=== PATIENT | female | born 1980 | race Hispanic/Latino ===

== ENCOUNTER → 2019-04-03 10:57 | Outpatient (CLI) | payer OTHER, SELFPAY ==
[2019-04-03 12:36] LABS: HCG Quantitative /Beta subunit < 2.39 mIU/mL
== END ==
PROVIDERS: Visit Provider Obstetrics & Gynecology
DX: N91.2 Amenorrhea, unspecified (principal)
CPT/HCPCS: 36415; 84702

== ENCOUNTER 2019-04-18 14:15 | Outpatient (RCR) | payer OTHER, SELFPAY ==
--- NOTE | 2019-03-15 16:14 | PT.OIE ---
Current Diagnoses Carpal tunnel syndrome, bilateral upper limbs (03/15/19) Pain in right wrist (03/15/19) Pain in left wrist (03/15/19) Past Medical History (Last Updated 03/15/19 @ 16:04 by Luz Elena Rock, PT) Asthma (Acute) Dislocation of left shoulder joint (Acute) Infertility, female (Acute) Past Surgical History (Last Updated 03/15/19 @ 16:04 by Luz Elena Rock, PT) delivery delivered (Acute ~10/16/18) H/O breast augmentation (Acute) H/O cornea transplant (Acute) Visit Care Team Role Provider Type Eri Aquino MD Attending Provider Physician Specialty: CHIEF PROGRAM OFFICER Address: [address] [place] [address], [facility] Email: [email or web address] Physical Therapy Initial Evaluation PT-OP-A Visit Information Start: 03/14/19 16:17 Freq: Status: Active Protocol: Document 03/15/19 14:23 LRN (Rec: 03/15/19 15:48 LRN [id number]) Out-Patient Physical Therapy Visit Information Visit Information Visit Type Initial Evaluation Visit Start Time 14:23 Visit Stop Time 15:05 Total Visit Minutes 42 Visit Number 1 Number of WELT STITCH CLEANER Visits 0 Evaluation Information Evaluation Date 03/15/19 Precautions Precautions almost 5 month old son. Hx of dislocated L shoulder per pt report. PT-OP-B Current Condition Start: 03/14/19 16:17 Freq: Status: Active Protocol: Document 03/15/19 14:23 LRN (Rec: 03/15/19 15:48 LRN [id number]) Current Condition History of Current Condition Onset Date Apr 2018. Stiffness in wrists started 10/16/18. Current Complaints Wrists feel super tight. Sometimes pain with movement radiates up forearm. History of Current Condition Carpal tunnel during 2nd trimester of . Child born 10/16/2018. Numbness went away after , now feels tightness in wrists and when weightbearing in the wrists feels stiff. 3 miscarriages . Prior Treatments and Tests Self treatment of stretching, that helps. Pt in [place] for ankle injury for past 3 years. Treatment Goals Patient/Caregiver Goals Pt goal with therapy is to clean house and exercise without pain, back to baseline . Prior Functional Status Baseline Function- ADL's Independent Baseline Function- Mobility Independent Baseline Function- Recreation/Hobbies No limitations. Current Functional Impairments (Reported) Functional Limitations- ADL's Feels wrist as son gets heavier. Functional Limitations- Recreation/ Exercise. Some movements like Hobbies overhead lift with dumbbell and squatting. Trouble holding weight.I Personal Factors Other Personal Factors That May Effect [place] on 10/16/18. Therapy/Recovery Baby currently . Spouse attending physical therapy for head injury. PT-OP-C Subjective Start: 03/14/19 16:17 Freq: Status: Active Protocol: Document 03/15/19 14:23 LRN (Rec: 03/15/19 15:48 LRN [id number]) Patient Questionnaires Quick Dash- Upper Extremity Quick Dash UE Score 15.9 Quick Dash UE Impairment 1 to 19% Impaired (Score 1-19) OP-PT Pain Assessment Pain Assessment Grid Paper Pain Assessment Grid Completed No Location L wrist Pain Location Details Anterior and posterior to Radial tuberosity and up forearm, radial side Intensity 4 Scale Used Numeric (1 - 10) Description Tightness Frequency Constant Radiating Location Up to mid forearm R wrist Pain Location Details Anterior and posterior to Radial tuberosity and up forearm, radial side Intensity 4 Scale Used Numeric (1 - 10) Description Tightness Frequency Constant Radiating Location Up to mid forearm Other Pain Aggravating Factors Nighttime PT-OP-H Neuro Start: 03/14/19 16:17 Freq: Status: Active Protocol: Document 03/15/19 14:23 LRN (Rec: 03/15/19 15:48 LRN [id number]) Sensation Evaluation Gross Sensation Gross Sensation WNL PT-OP-J Posture/Palpation/Skin Start: 03/14/19 16:17 Freq: Status: Active Protocol: Document 03/15/19 14:23 LRN (Rec: 03/15/19 15:59 LRN [id number]) Posture Evaluation Comments Posture Comments In Standing: Pt presents with endomorphic body type. She holds her arms in IR. Her L shoulder is low and slightly forward. She appears to have mild atrophy of the L forearm compared to the right (pt is right hand dominant). Palpation Assessment Location Bilateral forearms Palpation Location Anterior and posterior to the radial bone and proximal mid forearm Palpation Findings Tenderness PT-OP-K Range of Motion Start: 03/14/19 16:17 Freq: Status: Active Protocol: Document 03/15/19 14:23 LRN (Rec: 03/15/19 15:59 LRN [id number]) Elbow/Forearm Range of Motion Elbow/Forearm Right Active ROM Testing Position Sitting Elbow Flexion (degrees) 135 Elbow Hyperextension 7 Left Active ROM Testing Position Sitting Elbow Flexion (degrees) 130 Elbow Hyperextension 5 Wrist Goniometric Range of Motion Wrist Right Flexion Active (degrees) 60 Extension Active (degrees) 60 Left Flexion Active (degrees) 70 Extension Active (degrees) 42 PT-OP-L Special Tests Start: 03/14/19 16:17 Freq: Status: Active Protocol: Document 03/15/19 14:23 LRN (Rec: 03/15/19 15:48 LRN [id number]) Special Tests Wrist/Hand Special Tests Angela's Test Results + Bilateral PT-OP-M Strength Start: 03/14/19 16:17 Freq: Status: Active Protocol: Document 03/15/19 14:23 LRN (Rec: 03/15/19 15:59 LRN [id number]) Elbow/Forearm Strength Elbow and Forearm Manual Muscle Testing Right Flexion (C6) 5 Normal Extension (C7) 5 Normal Pronation 5 Normal Supination 5 Normal Left Flexion (C6) 5 Normal Extension (C7) 5 Normal Pronation 4+ Good+ Supination 4+ Good+ Comments Stiffness at anterior wrist is felt with elbow flexion MMT. Wrist Strength Wrist Manual Muscle Testing Right Flexion (C7) 4+ Good+ Extension (C6) 5 Normal Left Flexion (C7) 4+ Good+ Extension (C6) 5 Normal Finger/Thumb Strength Finger Manual Muscle Testing Right Thumb Flexion (fingers C8) 5 Normal Extension (thumb C8) 4+ Good+ Abduction (fingers T1) 5 Normal Left Thumb Flexion (fingers C8) 5 Normal Extension (thumb C8) 4+ Good+ Abduction (fingers T1) 5 Normal Hand Cleaner Touch Up Worker/Pinch Strength Hand Dominance Hand Dominance Right Hand Strength Right Comments 24 kg Left Comments 22 kg PT-OP-Q Treatments Start: 03/14/19 16:17 Freq: Status: Active Protocol: Document 03/15/19 14:23 LRN (Rec: 03/15/19 15:48 LRN [id number]) Self-Care/Home Management Treatment Education Patient Education Home Exercise Program,Pain Management Activities Self-Care/Home Management Activities I/S pt in self care use of modalities for pain and for after exercise. I/S pt in self prison stretch to the bilateral wrists (flex, ext, radial deviation). PT-OP-T Assessment and Plan Start: 03/14/19 16:17 Freq: Status: Active Protocol: Document 03/15/19 14:23 LRN (Rec: 03/15/19 15:48 LRN [id number]) Physical Therapy Assessment Rehab Potential Rehabilitation Potential Good Evaluation Complexity Number of Personal Factors/Comorbidities 1-2 Number of Body Systems Impaired 4 or More Clinical Presentation at Evaluation Evolving Impairments Impairments Activity Tolerance,Edema, Functional Mobility,Pain,ROM, Soft Tissue Mobility,Strength Goals Three Impairment Decreased wrist strength and L forearm strength due to pain and stiffness. Fpc Goal (LTG) Pt will demonstrate normal wrist and L forearm strength to be able to return to exercise for her health and well being. LTG Duration 05/14/19 Two Impairment Stiffness of bilateral wrist with ROM Short Term Goal (STG) Improve painfree/stiff free wrist AROM STG Duration 04/12/19 Fpc Goal (LTG) Pt will be able to weight bear into her hands without pain or stiffness to perform functional activities at home. LTG Duration 05/14/19 One Impairment Lacks appropriate HEP Baller Tender Goal (LTG) Pt will be independent in a self care HEP. LTG Duration 05/14/19 Assessment Summary Assessment Pt presents with mild bilateral carpel tunnel symptoms and mild symptoms of De Quervain's disease with tightness and pain felt along the tendon of the extensor pollicis brevis tendon and abductor pollicis longus tendon. She doesn't appear to have significant weakness in the hands, but has some weakness in the left comopared to the right. The pt will benefit from skilled physical therapy to normalize wrist mobility and strength and improve painfree functional ability. Physical Therapy Plan Frequency and Duration Frequency of Treatment 2x/Week Duration of Treatment 8 weeks Plan of Care Start Date 03/15/19 Plan of Care End Date 05/14/19 Therapeutic Interventions Therapeutic Interventions Home Exercise Program,Joint Mobilizations,Manual Therapy, Self-Care/Home Management,Soft Tissue Mobilization,Taping, Therapeutic Exercises Modalities Cold Pack/Ice Massage, Ultrasound Next Visit Focus/Plan Next Note Type Treatment Note Next Visit Plan Check wrist ROM/strength for UD/RD. Start STM for bilateral forearm (wrist and thumb ext's and thumb add), US to L carpal tunnel region f/b stretch of wrist and stretch to extensor pollicis brevis and adductor pollicis longus tendons, K-tape for space correction for carpal tunnel.
--- NOTE | 2019-03-22 16:00 | PT.OTN ---
Current Diagnoses Carpal tunnel syndrome, bilateral upper limbs (03/22/19) Pain in right wrist (03/22/19) Pain in left wrist (03/22/19) Physical Therapy Treatment Note PT-OP-A Visit Information Start: 03/14/19 16:17 Freq: Status: Active Protocol: Document 03/22/19 08:14 LRN (Rec: 03/22/19 09:02 LRN [id number]) Out-Patient Physical Therapy Visit Information Visit Information Visit Type Treatment Note Visit Start Time 08:16 Visit Stop Time 09:07 Total Visit Minutes 51 Visit Number 2 Number of GREEN HIDE INSPECTOR Visits 0 Evaluation Information Evaluation Date 03/15/19 Precautions Precautions almost 5 month old son. Hx of dislocated L shoulder per pt report. PT-OP-B Current Condition Start: 03/14/19 16:17 Freq: Status: Active Protocol: Document 03/15/19 14:23 LRN (Rec: 03/15/19 15:48 LRN [id number]) Current Condition History of Current Condition Onset Date Apr 2018. Stiffness in wrists started 10/16/18. Current Complaints Wrists feel super tight. Sometimes pain with movement radiates up forearm. History of Current Condition Carpal tunnel during 2nd trimester of . Child born 10/16/2018. Numbness went away after , now feels tightness in wrists and when weightbearing in the wrists feels stiff. 3 miscarriages . Prior Treatments and Tests Self treatment of stretching, that helps. Pt in [place] for ankle injury for past 3 years. Treatment Goals Patient/Caregiver Goals Pt goal with therapy is to clean house and exercise without pain, back to baseline . Prior Functional Status Baseline Function- ADL's Independent Baseline Function- Mobility Independent Baseline Function- Recreation/Hobbies No limitations. Current Functional Impairments (Reported) Functional Limitations- ADL's Feels wrist as son gets heavier. Functional Limitations- Recreation/ Exercise. Some movements like Hobbies overhead lift with dumbbell and squatting. Trouble holding weight.I Personal Factors Other Personal Factors That May Effect on 10/16/18. Therapy/Recovery Baby currently . Spouse attending physical therapy for head injury. PT-OP-C Subjective Start: 03/14/19 16:17 Freq: Status: Active Protocol: Document 03/22/19 08:14 LRN (Rec: 03/22/19 09:02 LRN [id number]) OP-PT Subjective Patient Comments Patient Comments States she has pain all in L arm to shoulder, pain at wrist is the same. PT-OP-H Neuro Start: 03/14/19 16:17 Freq: Status: Active Protocol: Document 03/15/19 14:23 LRN (Rec: 03/15/19 15:48 LRN [id number]) Sensation Evaluation Gross Sensation Gross Sensation WNL PT-OP-J Posture/Palpation/Skin Start: 03/14/19 16:17 Freq: Status: Active Protocol: Document 03/22/19 08:14 LRN (Rec: 03/22/19 09:02 LRN [id number]) Palpation Assessment Location Neck Palpation Location Neck SP Palpation Findings Tenderness Palpation Details C6, C8, T1, T2 SP C7 R TP PT-OP-K Range of Motion Start: 03/14/19 16:17 Freq: Status: Active Protocol: Document 03/22/19 08:14 LRN (Rec: 03/22/19 09:02 LRN [id number]) Wrist Goniometric Range of Motion Wrist Right Ulnar Deviation Active (degrees) 22 Radial Deviation Active (degrees) 27 Left Ulnar Deviation Active (degrees) 30 Radial Deviation Active (degrees) 27 ROM Limitations Wrist Limitations of Range of Motion Swelling Comments R UD causes pain at radial side of wrist with AROM, possible radial tendon pain. PT-OP-L Special Tests Start: 03/14/19 16:17 Freq: Status: Active Protocol: Document 03/22/19 08:14 LRN (Rec: 03/22/19 09:02 LRN [id number]) Special Tests Cervical Spine Special Tests Vertebral Artery Test Results negative bilaterally Comments less C/S rotatioin left. PT-OP-M Strength Start: 03/14/19 16:17 Freq: Status: Active Protocol: Document 03/15/19 14:23 LRN (Rec: 03/15/19 15:59 LRN [id number]) Elbow/Forearm Strength Elbow and Forearm Manual Muscle Testing Right Flexion (C6) 5 Normal Extension (C7) 5 Normal Pronation 5 Normal Supination 5 Normal Left Flexion (C6) 5 Normal Extension (C7) 5 Normal Pronation 4+ Good+ Supination 4+ Good+ Comments Stiffness at anterior wrist is felt with elbow flexion MMT. Wrist Strength Wrist Manual Muscle Testing Right Flexion (C7) 4+ Good+ Extension (C6) 5 Normal Left Flexion (C7) 4+ Good+ Extension (C6) 5 Normal Finger/Thumb Strength Finger Manual Muscle Testing Right Thumb Flexion (fingers C8) 5 Normal Extension (thumb C8) 4+ Good+ Abduction (fingers T1) 5 Normal Left Thumb Flexion (fingers C8) 5 Normal Extension (thumb C8) 4+ Good+ Abduction (fingers T1) 5 Normal Hand Uncrater/Pinch Strength Hand Dominance Hand Dominance Right Hand Strength Right Comments 24 kg Left Comments 22 kg PT-OP-Q Treatments Start: 03/14/19 16:17 Freq: Status: Active Protocol: Document 03/22/19 08:14 LRN (Rec: 03/22/19 09:02 LRN [id number]) Therapeutic Exercises Supine Exercises Angela stretch Supine Exercise Name Angela stretch Side right Comments ROM taken for UD/RD bilaterally UT Supine Exercise Name UT stretch Side right Comments Overhead lights out due to pt sensitivity Scalene Supine Exercise Name Scalene stretch Side bilateral Comments Overhead lights out due to pt sensitivity Manual Therapy Treatment Soft Tissue Mobilization R forearm Body Location R forearm Mobilization Type Strumming,Sustained Pressure, Trigger Point Release Comments Overhead lights out due to pt sensitivity Neck Body Location R UT/MT, Posterior Scalene, Lev Scap Mobilization Type Myofascial Release,Sustained Pressure,Trigger Point Release Intensity/Depth Superficial to moderate Body Position Supine Comments Overhead lights out due to pt sensitivity Manual Traction Cervical Details Cervical traction Body Position Supine Reps/Duration 3' Comments Decrease in L wrist and R shoulder pain Nerve Glides Radial Nerve Radial Details Supine: R arm straight at 90 deg's AB, wrist pumping Reps/Duration 1 set of 10 wrist pumps Comments Overhead lights out due to pt sensitivity Self-Care/Home Management Treatment Education Patient Education Home Exercise Program Activities Self-Care/Home Management Activities Issued and reviewed HEP: Ulnar nerve stretch and Cervical stretch (Scalene in supine). PT-OP-R Modalities Start: 03/14/19 16:17 Freq: Status: Active Protocol: Document 03/22/19 08:14 LRN (Rec: 03/22/19 09:02 LRN [id number]) Hot Pack/Cold Pack Treatment Hot Pack Location R neck/shoulder Patient Position Supine Treatment Duration (minutes) 10 Comments Overhead lights out due to pt sensitivity PT-OP-T Assessment and Plan Start: 03/14/19 16:17 Freq: Status: Active Protocol: Document 03/22/19 08:14 LRN (Rec: 03/22/19 09:02 LRN [id number]) Physical Therapy Assessment Goals Three Impairment Decreased wrist strength and L forearm strength due to pain and stiffness. Custodial Goal (LTG) Pt will demonstrate normal wrist and L forearm strength to be able to return to exercise for her health and well being. LTG Duration 05/14/19 Two Impairment Stiffness of bilateral wrist with ROM Short Term Goal (STG) Improve painfree/stiff free wrist AROM STG Duration 04/12/19 Strategic Planning Specialist Goal (LTG) Pt will be able to weight bear into her hands without pain or stiffness to perform functional activities at home. LTG Duration 05/14/19 One Impairment Lacks appropriate HEP Strategic Planning Specialist Goal (LTG) Pt will be independent in a self care HEP. LTG Duration 05/14/19 Assessment Summary Assessment Manual traction decreased shoulder pain mildly. STM was helpful to decrease wrist pain. Tenderness at ext pollicis brevis and ABD pollicis longus tendon. Active R. UD is decreased in mobility. Physical Therapy Plan Frequency and Duration Frequency of Treatment 2x/Week Duration of Treatment 8 weeks Plan of Care Start Date 03/15/19 Plan of Care End Date 05/14/19 Next Visit Focus/Plan Next Note Type Treatment Note Next Visit Plan Review previously issued HEP; start STM for bilateral forearm (wrist and thumb ext's and AD's), US to L carpal tunnel region f/b stretch of wrist and stretch to extensor pollicis brevis and adductor pollicis longus tendons, K- tape for space correction for carpal tunnel.
--- NOTE | 2019-03-26 16:54 | PT.OTN ---
Current Diagnoses Carpal tunnel syndrome, bilateral upper limbs (03/26/19) Pain in right wrist (03/26/19) Pain in left wrist (03/26/19) Physical Therapy Treatment Note PT-OP-A Visit Information Start: 03/14/19 16:17 Freq: Status: Active Protocol: Document 03/26/19 08:18 LRN (Rec: 03/26/19 09:02 LRN [id number]) Out-Patient Physical Therapy Visit Information Visit Information Visit Type Treatment Note Visit Start Time 08:20 Visit Stop Time 09:00 Total Visit Minutes 40 Visit Number 3 Evaluation Information Evaluation Date 03/15/19 Precautions Precautions almost 5 month old son. Hx of dislocated L shoulder per pt report. PT-OP-B Current Condition Start: 03/14/19 16:17 Freq: Status: Active Protocol: Document 03/15/19 14:23 LRN (Rec: 03/15/19 15:48 LRN [id number]) Current Condition History of Current Condition Onset Date Apr 2018. Stiffness in wrists started 10/16/18. Current Complaints Wrists feel super tight. Sometimes pain with movement radiates up forearm. History of Current Condition Carpal tunnel during 2nd trimester of . Child born 10/16/2018. Numbness went away after , now feels tightness in wrists and when weightbearing in the wrists feels stiff. 3 miscarriages . Prior Treatments and Tests Self treatment of stretching, that helps. Pt in [place] for ankle injury for past 3 years. Treatment Goals Patient/Caregiver Goals Pt goal with therapy is to clean house and exercise without pain, back to baseline . Prior Functional Status Baseline Function- ADL's Independent Baseline Function- Mobility Independent Baseline Function- Recreation/Hobbies No limitations. Current Functional Impairments (Reported) Functional Limitations- ADL's Feels wrist as son gets heavier. Functional Limitations- Recreation/ Exercise. Some movements like Hobbies overhead lift with dumbbell and squatting. Trouble holding weight.I Personal Factors Other Personal Factors That May Effect on 10/16/18. Therapy/Recovery Baby currently . Spouse attending physical therapy for head injury. PT-OP-C Subjective Start: 03/14/19 16:17 Freq: Status: Active Protocol: Document 03/26/19 08:18 LRN (Rec: 03/26/19 09:02 LRN [id number]) OP-PT Subjective Patient Comments Patient Comments No change. R Wrist hurt more today, both wrists hurt. R wrist pain rated 6-7/10 before therapy, 3-4/10 after therapy . PT-OP-H Neuro Start: 03/14/19 16:17 Freq: Status: Active Protocol: Document 03/15/19 14:23 LRN (Rec: 03/15/19 15:48 LRN [id number]) Sensation Evaluation Gross Sensation Gross Sensation WNL PT-OP-J Posture/Palpation/Skin Start: 03/14/19 16:17 Freq: Status: Active Protocol: Document 03/22/19 08:14 LRN (Rec: 03/22/19 09:02 LRN [id number]) Palpation Assessment Location Neck Palpation Location Neck SP Palpation Findings Tenderness Palpation Details C6, C8, T1, T2 SP C7 R TP PT-OP-K Range of Motion Start: 03/14/19 16:17 Freq: Status: Active Protocol: Document 03/22/19 08:14 LRN (Rec: 03/22/19 09:02 LRN [id number]) Wrist Goniometric Range of Motion Wrist Right Ulnar Deviation Active (degrees) 22 Radial Deviation Active (degrees) 27 Left Ulnar Deviation Active (degrees) 30 Radial Deviation Active (degrees) 27 ROM Limitations Wrist Limitations of Range of Motion Swelling Comments R UD causes pain at radial side of wrist with AROM, possible radial tendon pain. PT-OP-L Special Tests Start: 03/14/19 16:17 Freq: Status: Active Protocol: Document 03/22/19 08:14 LRN (Rec: 03/22/19 09:02 LRN [id number]) Special Tests Cervical Spine Special Tests Vertebral Artery Test Results negative bilaterally Comments less C/S rotatioin left. PT-OP-M Strength Start: 03/14/19 16:17 Freq: Status: Active Protocol: Document 03/15/19 14:23 LRN (Rec: 03/15/19 15:59 LRN [id number]) Elbow/Forearm Strength Elbow and Forearm Manual Muscle Testing Right Flexion (C6) 5 Normal Extension (C7) 5 Normal Pronation 5 Normal Supination 5 Normal Left Flexion (C6) 5 Normal Extension (C7) 5 Normal Pronation 4+ Good+ Supination 4+ Good+ Comments Stiffness at anterior wrist is felt with elbow flexion MMT. Wrist Strength Wrist Manual Muscle Testing Right Flexion (C7) 4+ Good+ Extension (C6) 5 Normal Left Flexion (C7) 4+ Good+ Extension (C6) 5 Normal Finger/Thumb Strength Finger Manual Muscle Testing Right Thumb Flexion (fingers C8) 5 Normal Extension (thumb C8) 4+ Good+ Abduction (fingers T1) 5 Normal Left Thumb Flexion (fingers C8) 5 Normal Extension (thumb C8) 4+ Good+ Abduction (fingers T1) 5 Normal Hand Corporate Quality Assurance Manager/Pinch Strength Hand Dominance Hand Dominance Right Hand Strength Right Comments 24 kg Left Comments 22 kg PT-OP-Q Treatments Start: 03/14/19 16:17 Freq: Status: Active Protocol: Document 03/26/19 08:18 LRN (Rec: 03/26/19 09:02 LRN [id number]) Therapeutic Exercises Supine Exercises Angela stretch Supine Exercise Name Angela stretch Side right Comments ROM taken for UD/RD bilaterally UT Supine Exercise Name UT stretch Side right Comments Overhead lights out due to pt sensitivity Scalene Supine Exercise Name Scalene stretch Side bilateral Comments Overhead lights out due to pt sensitivity Manual Therapy Treatment Soft Tissue Mobilization R forearm Body Location B forearm Mobilization Type Strumming,Sustained Pressure, Trigger Point Release Comments Overhead lights out due to pt sensitivity Nerve Glides Radial Nerve Radial Details Supine: R arm straight at 90 deg's AB, wrist pumping Reps/Duration 1 set of 10 wrist pumps Comments Overhead lights out due to pt sensitivity PT-OP-R Modalities Start: 03/14/19 16:17 Freq: Status: Active Protocol: Document 03/26/19 08:18 LRN (Rec: 03/26/19 09:02 LRN [id number]) Hot Pack/Cold Pack Treatment Cold Pack Location L Wrist Patient Position Supine Treatment Duration (minutes) 10 Patient Tolerance Good Hot Pack Location R neck/shoulder Patient Position Supine Treatment Duration (minutes) 10 Comments Overhead lights out due to pt sensitivity Ultrasound Therapy Treatment R carpal tunnel & Thumb ext Treatment Duration (minutes) 8 Patient Position Supine Coupling Medium Ultrasound Gel Applicator Size (cm2) 2 Frequency Setting (mHz) 3 Mode Setting Pulsed Duty Cycle 50% Intensity Setting (w/cm2) 1.0 PT-OP-T Assessment and Plan Start: 03/14/19 16:17 Freq: Status: Active Protocol: Document 03/26/19 08:18 LRN (Rec: 03/26/19 09:02 LRN [id number]) Physical Therapy Assessment Assessment Summary Assessment Today R wrist was more painful . Improved R wrist mobility s /p therapy and tolerated Angela stretch more. L wrist was stiff. Pt was tender in bilateral forearms. Pt needs to try and ice and stretch more since she has help with her mother and at home. Physical Therapy Plan Frequency and Duration Frequency of Treatment 2x/Week Duration of Treatment 8 weeks Plan of Care Start Date 03/15/19 Plan of Care End Date 05/14/19 Next Visit Focus/Plan Next Note Type Treatment Note Next Visit Plan Start STM for bilateral forearm (wrist and thumb ext's and AD's), US to L carpal tunnel region f/b stretch of wrist and stretch to extensor pollicis brevis and adductor pollicis longus tendons, K- tape for space correction for carpal tunnel.
--- NOTE | 2019-04-02 10:30 | PT.OTN ---
Current Diagnoses Carpal tunnel syndrome, bilateral upper limbs (04/02/19) Pain in right wrist (04/02/19) Pain in left wrist (04/02/19) Physical Therapy Treatment Note PT-OP-A Visit Information Start: 03/14/19 16:17 Freq: Status: Active Protocol: Document 04/02/19 08:19 LRN (Rec: 04/02/19 09:11 LRN [id number]) Out-Patient Physical Therapy Visit Information Visit Information Visit Type Treatment Note Visit Start Time 08:19 Visit Stop Time 09:10 Total Visit Minutes 51 Visit Number 4 Number of REFRIGERATION SPECIALIST Visits 0 Evaluation Information Evaluation Date 03/15/19 Precautions Precautions almost 5 month old son. Hx of dislocated L shoulder per pt report. PT-OP-B Current Condition Start: 03/14/19 16:17 Freq: Status: Active Protocol: Document 03/15/19 14:23 LRN (Rec: 03/15/19 15:48 LRN [id number]) Current Condition History of Current Condition Onset Date Apr 2018. Stiffness in wrists started 10/16/18. Current Complaints Wrists feel super tight. Sometimes pain with movement radiates up forearm. History of Current Condition Carpal tunnel during 2nd trimester of . Child born 10/16/2018. Numbness went away after , now feels tightness in wrists and when weightbearing in the wrists feels stiff. 3 miscarriages . Prior Treatments and Tests Self treatment of stretching, that helps. Pt in [place] for ankle injury for past 3 years. Treatment Goals Patient/Caregiver Goals Pt goal with therapy is to clean house and exercise without pain, back to baseline . Prior Functional Status Baseline Function- ADL's Independent Baseline Function- Mobility Independent Baseline Function- Recreation/Hobbies No limitations. Current Functional Impairments (Reported) Functional Limitations- ADL's Feels wrist as son gets heavier. Functional Limitations- Recreation/ Exercise. Some movements like Hobbies overhead lift with dumbbell and squatting. Trouble holding weight.I Personal Factors Other Personal Factors That May Effect [place] on 10/16/18. Therapy/Recovery Baby currently . Spouse attending physical therapy for head injury. PT-OP-C Subjective Start: 03/14/19 16:17 Freq: Status: Active Protocol: Document 04/02/19 08:19 LRN (Rec: 04/02/19 09:11 LRN [id number]) OP-PT Subjective Patient Comments Patient Comments No change, wrists feel tight during the night and 1st in AM . PT-OP-H Neuro Start: 03/14/19 16:17 Freq: Status: Active Protocol: Document 03/15/19 14:23 LRN (Rec: 03/15/19 15:48 LRN [id number]) Sensation Evaluation Gross Sensation Gross Sensation WNL PT-OP-J Posture/Palpation/Skin Start: 03/14/19 16:17 Freq: Status: Active Protocol: Document 03/22/19 08:14 LRN (Rec: 03/22/19 09:02 LRN [id number]) Palpation Assessment Location Neck Palpation Location Neck SP Palpation Findings Tenderness Palpation Details C6, C8, T1, T2 SP C7 R TP PT-OP-K Range of Motion Start: 03/14/19 16:17 Freq: Status: Active Protocol: Document 03/22/19 08:14 LRN (Rec: 03/22/19 09:02 LRN [id number]) Wrist Goniometric Range of Motion Wrist Right Ulnar Deviation Active (degrees) 22 Radial Deviation Active (degrees) 27 Left Ulnar Deviation Active (degrees) 30 Radial Deviation Active (degrees) 27 ROM Limitations Wrist Limitations of Range of Motion Swelling Comments R UD causes pain at radial side of wrist with AROM, possible radial tendon pain. PT-OP-L Special Tests Start: 03/14/19 16:17 Freq: Status: Active Protocol: Document 03/22/19 08:14 LRN (Rec: 03/22/19 09:02 LRN [id number]) Special Tests Cervical Spine Special Tests Vertebral Artery Test Results negative bilaterally Comments less C/S rotatioin left. PT-OP-M Strength Start: 03/14/19 16:17 Freq: Status: Active Protocol: Document 03/15/19 14:23 LRN (Rec: 03/15/19 15:59 LRN [id number]) Elbow/Forearm Strength Elbow and Forearm Manual Muscle Testing Right Flexion (C6) 5 Normal Extension (C7) 5 Normal Pronation 5 Normal Supination 5 Normal Left Flexion (C6) 5 Normal Extension (C7) 5 Normal Pronation 4+ Good+ Supination 4+ Good+ Comments Stiffness at anterior wrist is felt with elbow flexion MMT. Wrist Strength Wrist Manual Muscle Testing Right Flexion (C7) 4+ Good+ Extension (C6) 5 Normal Left Flexion (C7) 4+ Good+ Extension (C6) 5 Normal Finger/Thumb Strength Finger Manual Muscle Testing Right Thumb Flexion (fingers C8) 5 Normal Extension (thumb C8) 4+ Good+ Abduction (fingers T1) 5 Normal Left Thumb Flexion (fingers C8) 5 Normal Extension (thumb C8) 4+ Good+ Abduction (fingers T1) 5 Normal Hand Employment Agency Manager/Pinch Strength Hand Dominance Hand Dominance Right Hand Strength Right Comments 24 kg Left Comments 22 kg PT-OP-Q Treatments Start: 03/14/19 16:17 Freq: Status: Active Protocol: Document 04/02/19 08:19 LRN (Rec: 04/02/19 09:11 LRN [id number]) Therapeutic Exercises Supine Exercises Wrist flexors Supine Exercise Name Stretch to Wrist flexors Side bilateral Reps/Minutes 4 Comments Overhead lights out due to pt sensitivity Angela stretch Supine Exercise Name Angela stretch Side bilateral Comments Overhead lights out due to pt sensitivity UT Supine Exercise Name UT stretch Side bilateral Comments Overhead lights out due to pt sensitivity Scalene Comments Overhead lights out due to pt sensitivity Manual Therapy Treatment Soft Tissue Mobilization R forearm Mobilization Type Strumming Intensity/Depth Moderate Body Position Supine Taping Carpel Tunnel Syndrome Body Location L arm CTS tape w/o strip around wrist, R arm CTS w/ wrist strip Treatment Focus Space correction Type of Tape Kinesio Tape Skin Inspection Good Comments Left: 1 - I-strip X-cut along forearm/wrist for space correction (see pic), Right: 1 - I-strip X-cut along forearm/wrist for space correction and 1 - I-strip to dorsum of hand with light tension, wrapping around wrist with no tension and wrist in extension with opening between tape ends (see pic). Pt I/S in safe and proper removal of K-tape and precautions of use and removal if allergic reaction symptoms . PT-OP-R Modalities Start: 03/14/19 16:17 Freq: Status: Active Protocol: Document 04/02/19 08:19 LRN (Rec: 04/02/19 09:11 LRN [id number]) Hot Pack/Cold Pack Treatment Hot Pack Location R neck/shoulder Patient Position Supine Treatment Duration (minutes) 10 Comments Overhead lights out due to pt sensitivity Ultrasound Therapy Treatment L Carpel Tunnel & forearm Treatment Duration (minutes) 8 Patient Position Supine Coupling Medium Ultrasound Gel Frequency Setting (mHz) 3 Mode Setting Continuous Intensity Setting (w/cm2) 1.0 Comments 1 mHz at forearm 3 mHz at wrist R carpal tunnel & Thumb ext Treatment Duration (minutes) 8 Patient Position Supine Coupling Medium Ultrasound Gel Applicator Size (cm2) 2 Frequency Setting (mHz) 3 Mode Setting Continuous Duty Cycle 50% Intensity Setting (w/cm2) 1.0 Comments 1 mHz at forearm 3 mHz at wrist PT-OP-T Assessment and Plan Start: 03/14/19 16:17 Freq: Status: Active Protocol: Document 04/02/19 08:19 LRN (Rec: 04/02/19 10:28 LRN [id number]) Physical Therapy Assessment Assessment Summary Assessment Positive response to therapy with a reduction in tightness of bilateral forearms. No pain. Physical Therapy Plan Frequency and Duration Frequency of Treatment 2x/Week Duration of Treatment 8 weeks Plan of Care Start Date 03/15/19 Plan of Care End Date 05/14/19 Next Visit Focus/Plan Next Note Type Treatment Note Next Visit Plan Assess response and skin reaction to K-tape, STM for bilateral forearm (wrist and thumb ext's and AD's), US to L carpal tunnel region f/b stretch of wrist and stretch to extensor pollicis brevis and adductor pollicis longus tendons, K-tape for space correction for carpal tunnel.
--- NOTE | 2019-04-05 10:31 | PT.OTN ---
Current Diagnoses Carpal tunnel syndrome, bilateral upper limbs (04/05/19) Pain in right wrist (04/05/19) Pain in left wrist (04/05/19) Physical Therapy Treatment Note PT-OP-A Visit Information Start: 03/14/19 16:17 Freq: Status: Active Protocol: Document 04/05/19 08:18 LRN (Rec: 04/05/19 09:08 LRN [id number]) Out-Patient Physical Therapy Visit Information Visit Information Visit Type Treatment Note Visit Start Time 09:18 Visit Stop Time 09:10 Total Visit Minutes 52 Visit Number 5 Number of PODIATRIST Visits 0 Evaluation Information Evaluation Date 03/15/19 Precautions Precautions almost 5 month old son. Hx of dislocated L shoulder per pt report. PT-OP-B Current Condition Start: 03/14/19 16:17 Freq: Status: Active Protocol: Document 03/15/19 14:23 LRN (Rec: 03/15/19 15:48 LRN [id number]) Current Condition History of Current Condition Onset Date Apr 2018. Stiffness in wrists started 10/16/18. Current Complaints Wrists feel super tight. Sometimes pain with movement radiates up forearm. History of Current Condition Carpal tunnel during 2nd trimester of . Child born 10/16/2018. Numbness went away after , now feels tightness in wrists and when weightbearing in the wrists feels stiff. 3 miscarriages . Prior Treatments and Tests Self treatment of stretching, that helps. Pt in [place] for ankle injury for past 3 years. Treatment Goals Patient/Caregiver Goals Pt goal with therapy is to clean house and exercise without pain, back to baseline . Prior Functional Status Baseline Function- ADL's Independent Baseline Function- Mobility Independent Baseline Function- Recreation/Hobbies No limitations. Current Functional Impairments (Reported) Functional Limitations- ADL's Feels wrist as son gets heavier. Functional Limitations- Recreation/ Exercise. Some movements like Hobbies overhead lift with dumbbell and squatting. Trouble holding weight.I Personal Factors Other Personal Factors That May Effect on 10/16/18. Therapy/Recovery Baby currently . Spouse attending physical therapy for head injury. PT-OP-C Subjective Start: 03/14/19 16:17 Freq: Status: Active Protocol: Document 04/05/19 08:18 LRN (Rec: 04/05/19 09:08 LRN [id number]) OP-PT Subjective Patient Comments Patient Comments Exercises in gym daily, different work outs, crossfit. PT-OP-H Neuro Start: 03/14/19 16:17 Freq: Status: Active Protocol: Document 03/15/19 14:23 LRN (Rec: 03/15/19 15:48 LRN [id number]) Sensation Evaluation Gross Sensation Gross Sensation WNL PT-OP-J Posture/Palpation/Skin Start: 03/14/19 16:17 Freq: Status: Active Protocol: Document 03/22/19 08:14 LRN (Rec: 03/22/19 09:02 LRN [id number]) Palpation Assessment Location Neck Palpation Location Neck SP Palpation Findings Tenderness Palpation Details C6, C8, T1, T2 SP C7 R TP PT-OP-K Range of Motion Start: 03/14/19 16:17 Freq: Status: Active Protocol: Document 03/22/19 08:14 LRN (Rec: 03/22/19 09:02 LRN [id number]) Wrist Goniometric Range of Motion Wrist Right Ulnar Deviation Active (degrees) 22 Radial Deviation Active (degrees) 27 Left Ulnar Deviation Active (degrees) 30 Radial Deviation Active (degrees) 27 ROM Limitations Wrist Limitations of Range of Motion Swelling Comments R UD causes pain at radial side of wrist with AROM, possible radial tendon pain. PT-OP-L Special Tests Start: 03/14/19 16:17 Freq: Status: Active Protocol: Document 03/22/19 08:14 LRN (Rec: 03/22/19 09:02 LRN [id number]) Special Tests Cervical Spine Special Tests Vertebral Artery Test Results negative bilaterally Comments less C/S rotatioin left. PT-OP-M Strength Start: 03/14/19 16:17 Freq: Status: Active Protocol: Document 03/15/19 14:23 LRN (Rec: 03/15/19 15:59 LRN [id number]) Elbow/Forearm Strength Elbow and Forearm Manual Muscle Testing Right Flexion (C6) 5 Normal Extension (C7) 5 Normal Pronation 5 Normal Supination 5 Normal Left Flexion (C6) 5 Normal Extension (C7) 5 Normal Pronation 4+ Good+ Supination 4+ Good+ Comments Stiffness at anterior wrist is felt with elbow flexion MMT. Wrist Strength Wrist Manual Muscle Testing Right Flexion (C7) 4+ Good+ Extension (C6) 5 Normal Left Flexion (C7) 4+ Good+ Extension (C6) 5 Normal Finger/Thumb Strength Finger Manual Muscle Testing Right Thumb Flexion (fingers C8) 5 Normal Extension (thumb C8) 4+ Good+ Abduction (fingers T1) 5 Normal Left Thumb Flexion (fingers C8) 5 Normal Extension (thumb C8) 4+ Good+ Abduction (fingers T1) 5 Normal Hand Broiler Supervisor/Pinch Strength Hand Dominance Hand Dominance Right Hand Strength Right Comments 24 kg Left Comments 22 kg PT-OP-Q Treatments Start: 03/14/19 16:17 Freq: Status: Active Protocol: Document 04/05/19 08:18 LRN (Rec: 04/05/19 10:13 LRN [id number]) Cardio Equipment Recumbent Elliptical (OneShield) Duration (Minutes) 3 Resistance 1 Therapeutic Exercises Supine Exercises Pec stretch over towel roll Supine Exercise Name Pec stretch over towel roll. Comments Pt placed in stretch, I/S in home stretch, stretched during US Angela stretch Supine Exercise Name Angela stretch Side bilateral Comments Overhead lights out due to pt sensitivity Self-Care/Home Management Treatment Education Patient Education Body Mechanics,Home Exercise Program,Joint Protection, Posture Other Education Discussed ways to protect thumb with daily activities, exercise, and body mechanics. Discussed posture of upper body. Educated pt in hot/cold treatments in different settings. Discussed options of care with possible use of thumb splint for heavy lifting activities. Activities Self-Care/Home Management Activities Instructed pt in self care rx: Hot/cold to wrist, pec stretch on towel roll and her personal foam roll, and self forearm massage without use of thumb. PT-OP-R Modalities Start: 03/14/19 16:17 Freq: Status: Active Protocol: Document 04/05/19 08:18 LRN (Rec: 04/05/19 10:13 LRN [id number]) Ultrasound Therapy Treatment R carpal tunnel & Thumb ext Treatment Duration (minutes) 8 Patient Position Supine Coupling Medium Ultrasound Gel Applicator Size (cm2) 2 Frequency Setting (mHz) 3 Mode Setting Pulsed Duty Cycle 50% Intensity Setting (w/cm2) 1.0 Comments 3 mHz at wrist PT-OP-T Assessment and Plan Start: 03/14/19 16:17 Freq: Status: Active Protocol: Document 04/05/19 08:18 LRN (Rec: 04/05/19 09:08 LRN [id number]) Physical Therapy Assessment Assessment Summary Assessment R carpel tunnel with more pain on ulnar side, Shay Dequervains, possible shoulder component of Ulnar nerve. Tight intrinsics on L hand. Napoleon's Test negative bilaterally, Angela's positive bilaterally, Phalen's negative bilaterally, Tinel's for cutital tunnel syndrome negative bilaterally, TFCC Compression Test was postive bilaterally. Physical Therapy Plan Frequency and Duration Frequency of Treatment 2x/Week Duration of Treatment 8 weeks Plan of Care Start Date 03/15/19 Plan of Care End Date 05/14/19 Next Visit Focus/Plan Next Note Type Treatment Note Next Visit Plan No negative response to K-tape of skin. Check Scaphoid ( Bassett's Test & Scaphoid Thrust Test). Monitor for + Tinel sign on right. Treat for shay DeQuervin symptoms, and start STM & stretch to pecs for UE ulnar nerve involvement. Start L>R intrinsic mobility ex's. Might try K-tape for DeGuervain's.
--- NOTE | 2019-04-05 14:47 | PT.OTN ---
Current Diagnoses Carpal tunnel syndrome, bilateral upper limbs (04/05/19) Pain in right wrist (04/05/19) Pain in left wrist (04/05/19) Physical Therapy Treatment Note PT-OP-A Visit Information Start: 03/14/19 16:17 Freq: Status: Active Protocol: Document 04/05/19 08:18 LRN (Rec: 04/05/19 09:08 LRN [id number]) Out-Patient Physical Therapy Visit Information Visit Information Visit Type Treatment Note Visit Start Time 08:18 Visit Stop Time 09:10 Total Visit Minutes 52 Visit Number 5 Number of LABOR DELIVERY SPECIALIST Visits 0 Evaluation Information Evaluation Date 03/15/19 Precautions Precautions almost 5 month old son. Hx of dislocated L shoulder per pt report. PT-OP-B Current Condition Start: 03/14/19 16:17 Freq: Status: Active Protocol: Document 03/15/19 14:23 LRN (Rec: 03/15/19 15:48 LRN [id number]) Current Condition History of Current Condition Onset Date Apr 2018. Stiffness in wrists started 10/16/18. Current Complaints Wrists feel super tight. Sometimes pain with movement radiates up forearm. History of Current Condition Carpal tunnel during 2nd trimester of . Child born [birth year]16/2018. Numbness went away after , now feels tightness in wrists and when weightbearing in the wrists feels stiff. 3 miscarriages . Prior Treatments and Tests Self treatment of stretching, that helps. Pt in [place] for ankle injury for past 3 years. Treatment Goals Patient/Caregiver Goals Pt goal with therapy is to clean house and exercise without pain, back to baseline . Prior Functional Status Baseline Function- ADL's Independent Baseline Function- Mobility Independent Baseline Function- Recreation/Hobbies No limitations. Current Functional Impairments (Reported) Functional Limitations- ADL's Feels wrist as son gets heavier. Functional Limitations- Recreation/ Exercise. Some movements like Hobbies overhead lift with dumbbell and squatting. Trouble holding weight.I Personal Factors Other Personal Factors That May Effect on 10/16/18. Therapy/Recovery Baby currently . Spouse attending physical therapy for head injury. PT-OP-C Subjective Start: 03/14/19 16:17 Freq: Status: Active Protocol: Document 04/05/19 08:18 LRN (Rec: 04/05/19 09:08 LRN [id number]) OP-PT Subjective Patient Comments Patient Comments Exercises in gym daily, different work outs, crossfit. PT-OP-H Neuro Start: 03/14/19 16:17 Freq: Status: Active Protocol: Document 03/15/19 14:23 LRN (Rec: 03/15/19 15:48 LRN [id number]) Sensation Evaluation Gross Sensation Gross Sensation WNL PT-OP-J Posture/Palpation/Skin Start: 03/14/19 16:17 Freq: Status: Active Protocol: Document 03/22/19 08:14 LRN (Rec: 03/22/19 09:02 LRN [id number]) Palpation Assessment Location Neck Palpation Location Neck SP Palpation Findings Tenderness Palpation Details C6, C8, T1, T2 SP C7 R TP PT-OP-K Range of Motion Start: 03/14/19 16:17 Freq: Status: Active Protocol: Document 03/22/19 08:14 LRN (Rec: 03/22/19 09:02 LRN [id number]) Wrist Goniometric Range of Motion Wrist Right Ulnar Deviation Active (degrees) 22 Radial Deviation Active (degrees) 27 Left Ulnar Deviation Active (degrees) 30 Radial Deviation Active (degrees) 27 ROM Limitations Wrist Limitations of Range of Motion Swelling Comments R UD causes pain at radial side of wrist with AROM, possible radial tendon pain. PT-OP-L Special Tests Start: 03/14/19 16:17 Freq: Status: Active Protocol: Document 03/22/19 08:14 LRN (Rec: 03/22/19 09:02 LRN [id number]) Special Tests Cervical Spine Special Tests Vertebral Artery Test Results negative bilaterally Comments less C/S rotatioin left. PT-OP-M Strength Start: 03/14/19 16:17 Freq: Status: Active Protocol: Document 03/15/19 14:23 LRN (Rec: 03/15/19 15:59 LRN [id number]) Elbow/Forearm Strength Elbow and Forearm Manual Muscle Testing Right Flexion (C6) 5 Normal Extension (C7) 5 Normal Pronation 5 Normal Supination 5 Normal Left Flexion (C6) 5 Normal Extension (C7) 5 Normal Pronation 4+ Good+ Supination 4+ Good+ Comments Stiffness at anterior wrist is felt with elbow flexion MMT. Wrist Strength Wrist Manual Muscle Testing Right Flexion (C7) 4+ Good+ Extension (C6) 5 Normal Left Flexion (C7) 4+ Good+ Extension (C6) 5 Normal Finger/Thumb Strength Finger Manual Muscle Testing Right Thumb Flexion (fingers C8) 5 Normal Extension (thumb C8) 4+ Good+ Abduction (fingers T1) 5 Normal Left Thumb Flexion (fingers C8) 5 Normal Extension (thumb C8) 4+ Good+ Abduction (fingers T1) 5 Normal Hand Technology Administrator/Pinch Strength Hand Dominance Hand Dominance Right Hand Strength Right Comments 24 kg Left Comments 22 kg PT-OP-Q Treatments Start: 03/14/19 16:17 Freq: Status: Active Protocol: Document 04/05/19 08:18 LRN (Rec: 04/05/19 10:13 LRN [id number]) Cardio Equipment Recumbent Elliptical ([place]) Duration (Minutes) 3 Resistance 1 Therapeutic Exercises Supine Exercises Pec stretch over towel roll Supine Exercise Name Pec stretch over towel roll. Comments Pt placed in stretch, I/S in home stretch, stretched during US Angela stretch Supine Exercise Name Angela stretch Side bilateral Comments Overhead lights out due to pt sensitivity Self-Care/Home Management Treatment Education Patient Education Body Mechanics,Home Exercise Program,Joint Protection, Posture Other Education Discussed ways to protect thumb with daily activities, exercise, and body mechanics. Discussed posture of upper body. Educated pt in hot/cold treatments in different settings. Discussed options of care with possible use of thumb splint for heavy lifting activities. Activities Self-Care/Home Management Activities Instructed pt in self care rx: Hot/cold to wrist, pec stretch on towel roll and her personal foam roll, and self forearm massage without use of thumb. PT-OP-R Modalities Start: 03/14/19 16:17 Freq: Status: Active Protocol: Document 04/05/19 08:18 LRN (Rec: 04/05/19 10:13 LRN [id number]) Ultrasound Therapy Treatment R carpal tunnel & Thumb ext Treatment Duration (minutes) 8 Patient Position Supine Coupling Medium Ultrasound Gel Applicator Size (cm2) 2 Frequency Setting (mHz) 3 Mode Setting Pulsed Duty Cycle 50% Intensity Setting (w/cm2) 1.0 Comments 3 mHz at wrist PT-OP-T Assessment and Plan Start: 03/14/19 16:17 Freq: Status: Active Protocol: Document 04/05/19 08:18 LRN (Rec: 04/05/19 09:08 LRN [id number]) Physical Therapy Assessment Assessment Summary Assessment R carpel tunnel with more pain on ulnar side, Shay Dequervains, possible shoulder component of Ulnar nerve. Tight intrinsics on L hand. Napoleon's Test negative bilaterally, Angela's positive bilaterally, Phalen's negative bilaterally, Tinel's for cutital tunnel syndrome negative bilaterally, TFCC Compression Test was postive bilaterally. Physical Therapy Plan Frequency and Duration Frequency of Treatment 2x/Week Duration of Treatment 8 weeks Plan of Care Start Date 03/15/19 Plan of Care End Date 05/14/19 Next Visit Focus/Plan Next Note Type Treatment Note Next Visit Plan No negative response to K-tape of skin. Check Scaphoid ( Bassett's Test & Scaphoid Thrust Test). Monitor for + Tinel sign on right. Treat for shay DeQuervin symptoms, and start STM & stretch to pecs for UE ulnar nerve involvement. Start L>R intrinsic mobility ex's. Might try K-tape for DeGuervain's.
--- NOTE | 2019-04-09 15:46 | PT.OTN ---
Current Diagnoses Carpal tunnel syndrome, bilateral upper limbs (04/09/19) Pain in right wrist (04/09/19) Pain in left wrist (04/09/19) Physical Therapy Treatment Note PT-OP-A Visit Information Start: 03/14/19 16:17 Freq: Status: Active Protocol: Document 04/09/19 13:38 LRN (Rec: 04/09/19 14:29 LRN [id number]) Out-Patient Physical Therapy Visit Information Visit Information Visit Type Treatment Note Visit Start Time 13:38 Visit Stop Time 14:29 Total Visit Minutes 51 Visit Number 6 Number of CUSTOMER PROJECT MANAGER Visits 0 Evaluation Information Evaluation Date 03/15/19 Precautions Precautions almost 5 month old son. Hx of dislocated L shoulder per pt report. PT-OP-B Current Condition Start: 03/14/19 16:17 Freq: Status: Active Protocol: Document 03/15/19 14:23 LRN (Rec: 03/15/19 15:48 LRN [id number]) Current Condition History of Current Condition Onset Date Apr 2018. Stiffness in wrists started 10/16/18. Current Complaints Wrists feel super tight. Sometimes pain with movement radiates up forearm. History of Current Condition Carpal tunnel during 2nd trimester of . Child born 10/16/2018. Numbness went away after , now feels tightness in wrists and when weightbearing in the wrists feels stiff. 3 miscarriages . Prior Treatments and Tests Self treatment of stretching, that helps. Pt in [place] for ankle injury for past 3 years. Treatment Goals Patient/Caregiver Goals Pt goal with therapy is to clean house and exercise without pain, back to baseline . Prior Functional Status Baseline Function- ADL's Independent Baseline Function- Mobility Independent Baseline Function- Recreation/Hobbies No limitations. Current Functional Impairments (Reported) Functional Limitations- ADL's Feels wrist as son gets heavier. Functional Limitations- Recreation/ Exercise. Some movements like Hobbies overhead lift with dumbbell and squatting. Trouble holding weight.I Personal Factors Other Personal Factors That May Effect [place] on 10/16/18. Therapy/Recovery Baby currently . Spouse attending physical therapy for head injury. PT-OP-C Subjective Start: 03/14/19 16:17 Freq: Status: Active Protocol: Document 04/09/19 13:38 LRN (Rec: 04/09/19 14:29 LRN [id number]) OP-PT Subjective Patient Comments Patient Comments Pt states she is a little better since she has stopped breast feeding. Noted one time while holding baby to bottle feed her L hand became numb and tingly. Pt brings her son and mother into therapy. PT-OP-H Neuro Start: 03/14/19 16:17 Freq: Status: Active Protocol: Document 03/15/19 14:23 LRN (Rec: 03/15/19 15:48 LRN [id number]) Sensation Evaluation Gross Sensation Gross Sensation WNL PT-OP-J Posture/Palpation/Skin Start: 03/14/19 16:17 Freq: Status: Active Protocol: Document 03/22/19 08:14 LRN (Rec: 03/22/19 09:02 LRN [id number]) Palpation Assessment Location Neck Palpation Location Neck SP Palpation Findings Tenderness Palpation Details C6, C8, T1, T2 SP C7 R TP PT-OP-K Range of Motion Start: 03/14/19 16:17 Freq: Status: Active Protocol: Document 03/22/19 08:14 LRN (Rec: 03/22/19 09:02 LRN [id number]) Wrist Goniometric Range of Motion Wrist Right Ulnar Deviation Active (degrees) 22 Radial Deviation Active (degrees) 27 Left Ulnar Deviation Active (degrees) 30 Radial Deviation Active (degrees) 27 ROM Limitations Wrist Limitations of Range of Motion Swelling Comments R UD causes pain at radial side of wrist with AROM, possible radial tendon pain. PT-OP-L Special Tests Start: 03/14/19 16:17 Freq: Status: Active Protocol: Document 03/22/19 08:14 LRN (Rec: 03/22/19 09:02 LRN [id number]) Special Tests Cervical Spine Special Tests Vertebral Artery Test Results negative bilaterally Comments less C/S rotatioin left. PT-OP-M Strength Start: 03/14/19 16:17 Freq: Status: Active Protocol: Document 03/15/19 14:23 LRN (Rec: 03/15/19 15:59 LRN [id number]) Elbow/Forearm Strength Elbow and Forearm Manual Muscle Testing Right Flexion (C6) 5 Normal Extension (C7) 5 Normal Pronation 5 Normal Supination 5 Normal Left Flexion (C6) 5 Normal Extension (C7) 5 Normal Pronation 4+ Good+ Supination 4+ Good+ Comments Stiffness at anterior wrist is felt with elbow flexion MMT. Wrist Strength Wrist Manual Muscle Testing Right Flexion (C7) 4+ Good+ Extension (C6) 5 Normal Left Flexion (C7) 4+ Good+ Extension (C6) 5 Normal Finger/Thumb Strength Finger Manual Muscle Testing Right Thumb Flexion (fingers C8) 5 Normal Extension (thumb C8) 4+ Good+ Abduction (fingers T1) 5 Normal Left Thumb Flexion (fingers C8) 5 Normal Extension (thumb C8) 4+ Good+ Abduction (fingers T1) 5 Normal Hand Fuel Conversion Technician/Pinch Strength Hand Dominance Hand Dominance Right Hand Strength Right Comments 24 kg Left Comments 22 kg PT-OP-Q Treatments Start: 03/14/19 16:17 Freq: Status: Active Protocol: Document 04/09/19 13:38 LRN (Rec: 04/09/19 15:36 LRN [id number]) Therapeutic Exercises Supine Exercises Wrist flexors Supine Exercise Name Wrist flexor stretch Side bilateral Comments Overhead lights out due to pt sensitivity Angela stretch Supine Exercise Name Angela stretch Side bilateral Comments Overhead lights out due to pt sensitivity Manual Therapy Treatment Soft Tissue Mobilization L forearm massage Body Location L forearm (flexors & extensors ) Mobilization Type Strumming Intensity/Depth Moderate Body Position Hooklying Taping DeQuervains Body Location Bilateral wrists for DeQuervains Treatment Focus Space correction Type of Tape Kinesio Tape Skin Inspection Good PT-OP-R Modalities Start: 03/14/19 16:17 Freq: Status: Active Protocol: Document 04/09/19 13:38 LRN (Rec: 04/09/19 15:36 LRN [id number]) Ultrasound Therapy Treatment L Carpel Tunnel & forearm Treatment Duration (minutes) 8 Patient Position Supine Coupling Medium Ultrasound Gel Frequency Setting (mHz) 3 Mode Setting Continuous Intensity Setting (w/cm2) 1.0 Comments 3 mHz at carpal tunnel & wrist R carpal tunnel & Thumb ext Treatment Duration (minutes) 8 Patient Position Supine Coupling Medium Ultrasound Gel Applicator Size (cm2) 2 Frequency Setting (mHz) 3 Mode Setting Pulsed Duty Cycle 50% Intensity Setting (w/cm2) 1.0 Comments 3 mHz at wrist & thumb ext PT-OP-T Assessment and Plan Start: 03/14/19 16:17 Freq: Status: Active Protocol: Document 04/09/19 13:38 LRN (Rec: 04/09/19 14:29 [email or web address] [id number]) Physical Therapy Assessment Assessment Summary Assessment Pt has + Angela bilaterally. Possible shoulder involvement (Ulnar n) . Tight intrinsics of L hand. Tinels test was -, previous TFCC Compression Test was postive bilaterally. No negative response to K-tape of skin. Physical Therapy Plan Frequency and Duration Frequency of Treatment 2x/Week Duration of Treatment 8 weeks Plan of Care Start Date 03/15/19 Plan of Care End Date 05/14/19 Next Visit Focus/Plan Next Note Type Treatment Note Next Visit Plan Assess response to DeQuervain K-tape. Check Scaphoid ( Bassett's Test & Scaphoid Thrust Test). Monitor for + Tinel sign on right. Treat for richard DeQuervin symptoms, and start stretch to pecs for UE ulnar nerve involvement. Start L>R intrinsic mobility ex's.
--- NOTE | 2019-04-18 17:03 | PT.OTN ---
Current Diagnoses Carpal tunnel syndrome, bilateral upper limbs (04/18/19) Pain in right wrist (04/18/19) Pain in left wrist (04/18/19) Lower abdominal pain, unspecified (04/18/19) Physical Therapy Treatment Note PT-OP-A Visit Information Start: 03/14/19 16:17 Freq: Status: Active Protocol: Document 04/18/19 14:19 LRN (Rec: 04/18/19 15:17 LRN [id number]) Out-Patient Physical Therapy Visit Information Visit Information Visit Type Progress Note Visit Start Time 14:19 Visit Stop Time 15:16 Total Visit Minutes 57 Visit Number 7 Number of DATABASE ADMINISTRATOR Visits 0 Evaluation Information Evaluation Date 03/15/19 Precautions Precautions almost 5 month old son. Hx of dislocated L shoulder per pt report. PT-OP-B Current Condition Start: 03/14/19 16:17 Freq: Status: Active Protocol: Document 03/15/19 14:23 LRN (Rec: 03/15/19 15:48 LRN [id number]) Current Condition History of Current Condition Onset Date Apr 2018. Stiffness in wrists started 10/16/18. Current Complaints Wrists feel super tight. Sometimes pain with movement radiates up forearm. History of Current Condition Carpal tunnel during 2nd trimester of . Child born 10/16/2018. Numbness went away after , now feels tightness in wrists and when weightbearing in the wrists feels stiff. 3 miscarriages . Prior Treatments and Tests Self treatment of stretching, that helps. Pt in [place] for ankle injury for past 3 years. Treatment Goals Patient/Caregiver Goals Pt goal with therapy is to clean house and exercise without pain, back to baseline . Prior Functional Status Baseline Function- ADL's Independent Baseline Function- Mobility Independent Baseline Function- Recreation/Hobbies No limitations. Current Functional Impairments (Reported) Functional Limitations- ADL's Feels wrist as son gets heavier. Functional Limitations- Recreation/ Exercise. Some movements like Hobbies overhead lift with dumbbell and squatting. Trouble holding weight.I Personal Factors Other Personal Factors That May Effect [place] on 10/16/18. Therapy/Recovery Baby currently . Spouse attending physical therapy for head injury. PT-OP-C Subjective Start: 03/14/19 16:17 Freq: Status: Active Protocol: Document 04/18/19 14:19 LRN (Rec: 04/18/19 15:17 LRN [id number]) OP-PT Subjective Patient Comments Patient Comments Improving, not as tight in the mornings. States she is cancelling her next appt because she is having to get ready for her trip. She will be gone until after the New Year. PT-OP-H Neuro Start: 03/14/19 16:17 Freq: Status: Active Protocol: Document 03/15/19 14:23 LRN (Rec: 03/15/19 15:48 LRN [id number]) Sensation Evaluation Gross Sensation Gross Sensation WNL PT-OP-J Posture/Palpation/Skin Start: 03/14/19 16:17 Freq: Status: Active Protocol: Document 03/22/19 08:14 LRN (Rec: 03/22/19 09:02 LRN [id number]) Palpation Assessment Location Neck Palpation Location Neck SP Palpation Findings Tenderness Palpation Details C6, C8, T1, T2 SP C7 R TP PT-OP-K Range of Motion Start: 03/14/19 16:17 Freq: Status: Active Protocol: Document 03/22/19 08:14 LRN (Rec: 03/22/19 09:02 LRN [id number]) Wrist Goniometric Range of Motion Wrist Right Ulnar Deviation Active (degrees) 22 Radial Deviation Active (degrees) 27 Left Ulnar Deviation Active (degrees) 30 Radial Deviation Active (degrees) 27 ROM Limitations Wrist Limitations of Range of Motion Swelling Comments R UD causes pain at radial side of wrist with AROM, possible radial tendon pain. PT-OP-L Special Tests Start: 03/14/19 16:17 Freq: Status: Active Protocol: Document 03/22/19 08:14 LRN (Rec: 03/22/19 09:02 LRN [id number]) Special Tests Cervical Spine Special Tests Vertebral Artery Test Results negative bilaterally Comments less C/S rotatioin left. PT-OP-M Strength Start: 03/14/19 16:17 Freq: Status: Active Protocol: Document 03/15/19 14:23 LRN (Rec: 03/15/19 15:59 LRN [id number]) Elbow/Forearm Strength Elbow and Forearm Manual Muscle Testing Right Flexion (C6) 5 Normal Extension (C7) 5 Normal Pronation 5 Normal Supination 5 Normal Left Flexion (C6) 5 Normal Extension (C7) 5 Normal Pronation 4+ Good+ Supination 4+ Good+ Comments Stiffness at anterior wrist is felt with elbow flexion MMT. Wrist Strength Wrist Manual Muscle Testing Right Flexion (C7) 4+ Good+ Extension (C6) 5 Normal Left Flexion (C7) 4+ Good+ Extension (C6) 5 Normal Finger/Thumb Strength Finger Manual Muscle Testing Right Thumb Flexion (fingers C8) 5 Normal Extension (thumb C8) 4+ Good+ Abduction (fingers T1) 5 Normal Left Thumb Flexion (fingers C8) 5 Normal Extension (thumb C8) 4+ Good+ Abduction (fingers T1) 5 Normal Hand Ic Design Manager/Pinch Strength Hand Dominance Hand Dominance Right Hand Strength Right Comments 24 kg Left Comments 22 kg PT-OP-Q Treatments Start: 03/14/19 16:17 Freq: Status: Active Protocol: Document 04/18/19 14:19 LRN (Rec: 04/18/19 15:17 LRN [id number]) Therapeutic Exercises Sitting Exercises Wrist Sitting Exercise Name Stretch to flexors and extensors Side bilateral Reps/Minutes 1x Angela Stretch Sitting Exercise Name Angela stretch Side bilateral Finger tendon glides Sitting Exercise Name Digits: Flex>table top>Flex> Straight. Side bilateral Manual Therapy Treatment Soft Tissue Mobilization L forearm massage Body Location L forearm (flexors & extensors ) Mobilization Type Strumming Intensity/Depth Moderate Body Position Sitting R forearm Body Location R forearm massage to thumb/ wrist extensor Mobilization Type Strumming Intensity/Depth Moderate Body Position Sitting Taping Lateral Epicondyle Body Location Shay Lateral Epicondyle Treatment Focus Space correction Type of Tape Kinesio Tape Comments 1 I-Strip Medial Epicondyle Body Location Shay Medial Epicondyle Treatment Focus Space correction Type of Tape Kinesio Tape Comments 1 I-Strip DeQuervains Body Location Bilateral wrists for DeQuervains Treatment Focus Space correction Type of Tape Kinesio Tape Skin Inspection Good Comments Problem with taping R hand required repeat of taping and application of second tape over thumb region to stabilize tape to hand. Self-Care/Home Management Treatment Education Other Education Pt I/S that her POC will at the end of the month ; therefore a new POC is needed. Pt will decide whether she wants to begin PT anew in [place] or continue her at [facility] on her return. PT-OP-R Modalities Start: 03/14/19 16:17 Freq: Status: Active Protocol: Document 04/18/19 14:19 LRN (Rec: 04/18/19 15:17 LRN [id number]) Ultrasound Therapy Treatment L Carpel Tunnel & forearm Treatment Duration (minutes) 8 Patient Position Supine Coupling Medium Ultrasound Gel Frequency Setting (mHz) 3 Mode Setting Continuous Intensity Setting (w/cm2) 1.0 Comments 3 mHz at carpal tunnel & wrist R carpal tunnel & Thumb ext Treatment Duration (minutes) 8 Patient Position Supine Coupling Medium Ultrasound Gel Applicator Size (cm2) 2 Frequency Setting (mHz) 3 Mode Setting Pulsed Duty Cycle 50% Intensity Setting (w/cm2) 1.0 Comments 3 mHz at wrist & thumb ext PT-OP-T Assessment and Plan Start: 03/14/19 16:17 Freq: Status: Active Protocol: Document 04/18/19 14:19 LRN (Rec: 04/18/19 15:17 LRN [id number]) Physical Therapy Assessment Rehab Potential Rehabilitation Potential Good Evaluation Complexity Number of Personal Factors/Comorbidities 1-2 Number of Body Systems Impaired 4 or More Clinical Presentation at Evaluation Evolving Impairments Impairments Activity Tolerance,Edema,ROM, Soft Tissue Mobility,Strength Goals Three Impairment Decreased wrist strength and L forearm strength due to pain and stiffness. Custodial Goal (LTG) Pt will demonstrate normal wrist and L forearm strength to be able to return to exercise for her health and well being. LTG Duration 05/14/19 (04/18/19: Progressing, pt is exercising) Two Impairment Stiffness of bilateral wrist with ROM Short Term Goal (STG) Improve painfree/stiff free wrist AROM STG Duration 04/12/19 (04/18/19: Slowly improving per subjective report) Custodial Goal (LTG) Pt will be able to weight bear into her hands without pain or stiffness to perform functional activities at home. One Impairment Lacks appropriate HEP Operations Leader Goal (LTG) Pt will be independent in a self care HEP. LTG Duration 05/14/19 (04/18/19: Progressing) Assessment Summary Assessment Pt attends to therapy reporting slow improvement, but less tightness in the arms in the mornings. She presents with +Angela Test bilaterally indicating inflammation of the thumb extensors. She also demonstrates tight intrinsics of the L hand. Tinels test was negative bilaterally for carpel tunnel syndrome. She did previously demonstrate a positive TFCC Compression Test ; therefore resolution of her pain may be prolonged and can take up to 8-12 weeks. 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 She lately has shown improvement with stopping of . The pt would benefit from continued skilled physical therapy to decreased pain and improve wrist strength and mobility. The pt hopes to start therapy for her abdominal scar massage once she has improved with her bilateral wrist pain and can continue on a more independent basis. Physical Therapy Plan Frequency and Duration Frequency of Treatment 2x/Week Plan of Care Start Date 05/14/19 Plan of Care End Date 08/13/19 Next Visit Focus/Plan Next Note Type Treatment Note Next Visit Plan Eval abdominal soft tissue restrictions, ? scar. Discuss continuation of therapy at [facility] or in [place]. Assess response to DeQuervain K-tape. Check Scaphoid (Bassett's Test & Scaphoid Thrust Test). Treat for shay DeQuervin symptoms, and start stretch to pecs for UE ulnar nerve involvement. Start L>R intrinsic mobility ex's.
--- NOTE | 2019-04-18 17:06 | PT.OPPOC ---
Current Diagnoses Carpal tunnel syndrome, bilateral upper limbs (04/18/19) Pain in right wrist (04/18/19) Pain in left wrist (04/18/19) Lower abdominal pain, unspecified (04/18/19) Visit Care Team Role Provider Type Eri Aquino MD Attending Provider Physician Specialty: TOBACCO SIEVE OPERATOR Address: [address] [place] [address], [address] Email: [email or web address] Plan Of Care PT-OP-T Assessment and Plan Start: 03/14/19 16:17 Freq: Status: Active Protocol: Document 04/18/19 14:19 LRN (Rec: 04/18/19 15:17 LRN [id number]) Physical Therapy Assessment Rehab Potential Rehabilitation Potential Good Evaluation Complexity Number of Personal Factors/Comorbidities 1-2 Number of Body Systems Impaired 4 or More Clinical Presentation at Evaluation Evolving Impairments Impairments Activity Tolerance,Edema,ROM, Soft Tissue Mobility,Strength Goals Three Impairment Decreased wrist strength and L forearm strength due to pain and stiffness. Snf Goal (LTG) Pt will demonstrate normal wrist and L forearm strength to be able to return to exercise for her health and well being. LTG Duration 05/14/19 (04/18/19: Progressing, pt is exercising) Two Impairment Stiffness of bilateral wrist with ROM Short Term Goal (STG) Improve painfree/stiff free wrist AROM STG Duration 04/12/19 (04/18/19: Slowly improving per subjective report) Performance Improvement Coordinator Goal (LTG) Pt will be able to weight bear into her hands without pain or stiffness to perform functional activities at home. One Impairment Lacks appropriate HEP Performance Improvement Coordinator Goal (LTG) Pt will be independent in a self care HEP. LTG Duration 05/14/19 (04/18/19: Progressing) Assessment Summary Assessment Pt attends to therapy reporting slow improvement, but less tightness in the arms in the mornings. She presents with +Angela Test bilaterally indicating inflammation of the thumb extensors. She also demonstrates tight intrinsics of the L hand. Tinels test was negative bilaterally for carpel tunnel syndrome. She did previously demonstrate a positive TFCC Compression Test ; therefore resolution of her pain may be prolonged and can take up to 8-12 weeks. 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 She lately has shown improvement with stopping of . The pt would benefit from continued skilled physical therapy to decreased pain and improve wrist strength and mobility. The pt hopes to start therapy for her abdominal scar massage once she has improved with her bilateral wrist pain and can continue on a more independent basis. Physical Therapy Plan Frequency and Duration Frequency of Treatment 2x/Week Plan of Care Start Date 05/14/19 Plan of Care End Date 08/13/19 Next Visit Focus/Plan Next Note Type Treatment Note Next Visit Plan Eval abdominal soft tissue restrictions, ? scar. Discuss continuation of therapy at [facility] or in [place]. Assess response to DeQuervain K-tape. Check Scaphoid (Bassett's Test & Scaphoid Thrust Test). Treat for richard DeQuervin symptoms, and start stretch to pecs for UE ulnar nerve involvement. Start L>R intrinsic mobility ex's. Plan of Care Dates Plan of Care Start Date 05/14/19 Plan of Care End Date 08/13/19
--- NOTE | 2020-01-30 16:33 | PT.OPDS ---
Current Diagnoses Carpal tunnel syndrome, bilateral upper limbs (04/18/19) Pain in right wrist (04/18/19) Pain in left wrist (04/18/19) Lower abdominal pain, unspecified (04/18/19) Visit Care Team Role Provider Type Eri Aquino MD Attending Provider Physician Specialty: DECORATOR CONSULTANT Address: [address] [place] [address], [facility] Email: [email or web address] Visit Number Visit Number 7 Discharge Summary PT-OP-B Current Condition Start: 03/14/19 16:17 Freq: Status: Active Protocol: Document 03/15/19 14:23 LRN (Rec: 03/15/19 15:48 LRN [id number]) Current Condition History of Current Condition Onset Date Apr 2018. Stiffness in wrists started 10/16/18. Current Complaints Wrists feel super tight. Sometimes pain with movement radiates up forearm. History of Current Condition Carpal tunnel during 2nd trimester of . Child born 10/16/2018. Numbness went away after , now feels tightness in wrists and when weightbearing in the wrists feels stiff. 3 miscarriages . Prior Treatments and Tests Self treatment of stretching, that helps. Pt in [place] for ankle injury for past 3 years. Treatment Goals Patient/Caregiver Goals Pt goal with therapy is to clean house and exercise without pain, back to baseline . Prior Functional Status Baseline Function- ADL's Independent Baseline Function- Mobility Independent Baseline Function- Recreation/Hobbies No limitations. Current Functional Impairments (Reported) Functional Limitations- ADL's Feels wrist as son gets heavier. Functional Limitations- Recreation/ Exercise. Some movements like Hobbies overhead lift with dumbbell and squatting. Trouble holding weight.I Personal Factors Other Personal Factors That May Effect on 10/16/18. Therapy/Recovery Baby currently . Spouse attending physical therapy for head injury. PT-OP-C Subjective Start: 03/14/19 16:17 Freq: Status: Active Protocol: Document 04/18/19 14:19 LRN (Rec: 04/18/19 15:17 LRN [id number]) OP-PT Subjective Patient Comments Patient Comments Improving, not as tight in the mornings. States she is cancelling her next appt because she is having to get ready for her trip. She will be gone until after the New Year. PT-OP-H Neuro Start: 03/14/19 16:17 Freq: Status: Active Protocol: Document 03/15/19 14:23 LRN (Rec: 03/15/19 15:48 LRN [id number]) Sensation Evaluation Gross Sensation Gross Sensation WNL PT-OP-J Posture/Palpation/Skin Start: 03/14/19 16:17 Freq: Status: Active Protocol: Document 03/22/19 08:14 LRN (Rec: 03/22/19 09:02 LRN [id number]) Palpation Assessment Location Neck Palpation Location Neck SP Palpation Findings Tenderness Palpation Details C6, C8, T1, T2 SP C7 R TP PT-OP-K Range of Motion Start: 03/14/19 16:17 Freq: Status: Active Protocol: Document 03/22/19 08:14 LRN (Rec: 03/22/19 09:02 LRN [id number]) Wrist Goniometric Range of Motion Wrist Right Ulnar Deviation Active (degrees) 22 Radial Deviation Active (degrees) 27 Left Ulnar Deviation Active (degrees) 30 Radial Deviation Active (degrees) 27 ROM Limitations Wrist Limitations of Range of Motion Swelling Comments R UD causes pain at radial side of wrist with AROM, possible radial tendon pain. PT-OP-L Special Tests Start: 03/14/19 16:17 Freq: Status: Active Protocol: Document 03/22/19 08:14 LRN (Rec: 03/22/19 09:02 LRN [id number]) Special Tests Cervical Spine Special Tests Vertebral Artery Test Results negative bilaterally Comments less C/S rotatioin left. PT-OP-M Strength Start: 03/14/19 16:17 Freq: Status: Active Protocol: Document 03/15/19 14:23 LRN (Rec: 03/15/19 15:59 LRN [id number]) Elbow/Forearm Strength Elbow and Forearm Manual Muscle Testing Right Flexion (C6) 5 Normal Extension (C7) 5 Normal Pronation 5 Normal Supination 5 Normal Left Flexion (C6) 5 Normal Extension (C7) 5 Normal Pronation 4+ Good+ Supination 4+ Good+ Comments Stiffness at anterior wrist is felt with elbow flexion MMT. Wrist Strength Wrist Manual Muscle Testing Right Flexion (C7) 4+ Good+ Extension (C6) 5 Normal Left Flexion (C7) 4+ Good+ Extension (C6) 5 Normal Finger/Thumb Strength Finger Manual Muscle Testing Right Thumb Flexion (fingers C8) 5 Normal Extension (thumb C8) 4+ Good+ Abduction (fingers T1) 5 Normal Left Thumb Flexion (fingers C8) 5 Normal Extension (thumb C8) 4+ Good+ Abduction (fingers T1) 5 Normal Hand Stock Letterer/Pinch Strength Hand Dominance Hand Dominance Right Hand Strength Right Comments 24 kg Left Comments 22 kg PT-OP-T Assessment and Plan Start: 03/14/19 16:17 Freq: Status: Active Protocol: Document 01/30/20 16:28 LRN (Rec: 01/30/20 16:33 LRN [id number]) Physical Therapy Assessment Goals Three Impairment Decreased wrist strength and L forearm strength due to pain and stiffness. Jail Goal (LTG) Pt will demonstrate normal wrist and L forearm strength to be able to return to exercise for her health and well being. LTG Duration 05/14/19 (04/18/19: Progressing, pt is exercising) Two Impairment Stiffness of bilateral wrist with ROM Short Term Goal (STG) Improve painfree/stiff free wrist AROM STG Duration 04/12/19 (04/18/19: Slowly improving per subjective report) Business Leader Goal (LTG) Pt will be able to weight bear into her hands without pain or stiffness to perform functional activities at home. One Impairment Lacks appropriate HEP Business Leader Goal (LTG) Pt will be independent in a self care HEP. LTG Duration 05/14/19 (04/18/19: Progressing) Assessment Summary Assessment Pt is unavailable for final assessment. Physical Therapy Plan Discharge Physical Therapy Discharge Reasons No Longer Attending PT Discharge Comments Pt was seen for an initial evaluation 03/15/2019 and was last seen 04/18/2019. Pt has not been seen since COVID 19 pandemic outbreak. The pt has not returned for further therapy and will now need a new referral to return to therapy; therefore the pt is being discharged from PT due to her no longer attending PT.
== END 2020-01-31 14:59 ==
LOC: PHYS 14:15
PROVIDERS: Visit Provider Obstetrics & Gynecology
DX: G56.03 Carpal tunnel syndrome, bilateral upper limbs (principal); M25.532 Pain in left wrist; M25.531 Pain in right wrist
CPT/HCPCS: 97035; 97110; 97140; 97162; 97535

== ENCOUNTER → 2022-04-15 14:32 | Outpatient (CLI) | payer OTHER, SELFPAY ==
[2022-04-15 15:56] LABS: HCG Quantitative /Beta subunit 2850.7 mIU/mL
== END ==
PROVIDERS: Referring Provider Obstetrics & Gynecology; Visit Provider Obstetrics & Gynecology
DX: N96 Recurrent pregnancy loss (principal)
CPT/HCPCS: 36415; 84702

== ENCOUNTER → 2022-04-18 10:11 | Outpatient (CLI) | payer OTHER, SELFPAY ==
[2022-04-18 17:33] LABS: HCG Quantitative /Beta subunit 6182 mIU/mL
== END ==
PROVIDERS: Referring Provider Obstetrics & Gynecology; Visit Provider Obstetrics & Gynecology
DX: N96 Recurrent pregnancy loss (principal)
CPT/HCPCS: 36415; 84702

== ENCOUNTER → 2022-04-20 07:00 | Outpatient (CLI) | payer OTHER, SELFPAY ==
[2022-04-20 09:28] LABS: HCG Quantitative /Beta subunit 10015 mIU/mL
== END ==
PROVIDERS: Referring Provider Obstetrics & Gynecology; Visit Provider Obstetrics & Gynecology
DX: N91.2 Amenorrhea, unspecified (principal); N96 Recurrent pregnancy loss
CPT/HCPCS: 36415; 84702

== ENCOUNTER → 2022-05-03 11:47 | Outpatient (CLI) | payer OTHER, SELFPAY ==
[2022-05-03 14:10] LABS: HCG Quantitative /Beta subunit 58240 mIU/mL
== END ==
PROVIDERS: Referring Provider Obstetrics & Gynecology; Visit Provider Obstetrics & Gynecology
DX: O26.21 Pregnancy care for patient with recurrent pregnancy loss, first trimester (principal); Z3A.00 Weeks of gestation of pregnancy not specified
CPT/HCPCS: 36415; 84702; 86850; 86900; 86901

== ENCOUNTER → 2022-05-05 09:14 | Outpatient (CLI) | payer OTHER, SELFPAY ==
[2022-05-05 10:43] LABS: HCG Quantitative /Beta subunit 60533 mIU/mL
== END ==
PROVIDERS: Referring Provider Obstetrics & Gynecology; Visit Provider Obstetrics & Gynecology
DX: N91.2 Amenorrhea, unspecified (principal)
CPT/HCPCS: 36415; 84702

== ENCOUNTER → 2022-05-06 10:35 | Outpatient (CLI) | payer OTHER, SELFPAY ==
[2022-05-06 12:49] LABS: HCG Quantitative /Beta subunit 61501 mIU/mL
== END ==
PROVIDERS: Referring Provider Obstetrics & Gynecology; Visit Provider Obstetrics & Gynecology
DX: Z34.90 Encounter for supervision of normal pregnancy, unspecified, unspecified trimester (principal)
CPT/HCPCS: 36415; 84702

== ENCOUNTER → 2022-05-10 09:21 | Outpatient (CLI) | payer OTHER, SELFPAY ==
[2022-05-10 10:55] LABS: HCG Quantitative /Beta subunit 53569 mIU/mL
== END ==
PROVIDERS: Referring Provider Obstetrics & Gynecology; Visit Provider Obstetrics & Gynecology
DX: Z34.90 Encounter for supervision of normal pregnancy, unspecified, unspecified trimester (principal)
CPT/HCPCS: 36415; 84702

== ENCOUNTER → 2022-05-18 16:59 | Outpatient (CLI) | payer OTHER, SELFPAY ==
[2022-05-18 17:53] LABS: COVID19 -Nasal RAPID Negative (Negative)
== END ==
PROVIDERS: Visit Provider Obstetrics & Gynecology
DX: Z20.822 Contact with and (suspected) exposure to COVID-19 (principal); Z01.812 Encounter for preprocedural laboratory examination
CPT/HCPCS: 87635

== ENCOUNTER 2022-05-19 09:18 | Day surgery (SDC) | payer OTHER, SELFPAY ==
[2022-05-19] VITALS (9 sets, daily range): BP systolic 74–118; BP diastolic 41–79; PULSE 61–92; RESP 15–18; TEMP 36.5–37.2; O2SAT 94–100; BMI 30.4
--- NOTE | 2022-05-19 | PATH_ITS ---
[facility] Accession Number: [id number] . 01 Material submitted: . product of conception - PRODUCTS OF CONCEPTION . 01 Diagnosis: Uterine Contents: Immature chorionic villi with hydropic degeneration, decidua, and gestational endometrium. Negative for changes diagnostic of gestational trophoblastic disease. MRV 05/23/2022 1733 Local . 01 Electronically signed: . Linda Crowe MD, Pathologist NPI- [id number] . 01 Gross description: . The specimen is received in formalin labeled with the patient's name, , and products of conception, and consists of multiple lopez spongy to membranous soft tissue fragments admixed with mucohemorrhagic material aggregating to 5.7 x 2.0 x 0.7 cm. No tissue is identified. Supervisor Plastic Sheets sections are submitted in cassettes [id number]. ([id number]) /MRV 05/20/2022 1340 Local . 01 Pathologist provided ICD-10: O02.1 . 01 CPT . 351954 Specimen Comment: A courtesy copy of this report has been sent to [phone] Performed at: 01 [facility] [address] [place] [address], [place], [place] [id number] MD Matthew Thompson MD Phone: [phone]
--- NOTE | 2022-05-19 10:17 | PM.HP.1 ---
History of Present Illness History of Present Illness Date Patient Seen: 05/19/22 Time Patient Seen: 10:44 Chief complaint: Dilation and Curettage Narrative: Patient is a 42 year old with a missed Ab who presents for a suction D&C. Patient History Medical History (Updated 05/03/22 @ 11:39 by Eri Aquino MD) Asthma Dislocation of left shoulder joint History of recurrent miscarriages Infertility, female Surgical History (Updated 05/03/22 @ 15:10 by Eri Aquino MD) delivery delivered (~10/16/18) H/O breast augmentation H/O cornea transplant Family & Social History Family History (Updated 04/26/22 @ 15:22 by Iveth Penaloza RN) Father Cancer Diabetes mellitus Stroke Mother Hypertension Depression Brother Colon cancer Grandfather Heart attack Grandmother No problems noted. Social History: household members spouse,other,children lives independently Yes caregiver/support person Yes Tobacco & Substance use: Smoking Status Never smoker alcohol intake former Substance Use Type does not use Meds Home Medications and Allergies Home Medications Medication Instructions Recorded Confirmed Type progesterone micronized 200 mg 200 mg PO BEDTIME #30 caps 04/19/22 05/13/22 Rx capsule ascorbate calcium (vitamin C) 500 500 mg PO DAILY 04/26/22 05/13/22 History mg tablet cholecalciferol (vitamin D3) 25 25 mcg PO DAILY 04/26/22 05/13/22 History mcg (1,000 unit) capsule enoxaparin 40 mg/0.4 mL 40 mg (0.4 mL) SUBCUT DAILY #12 mL 04/26/22 05/13/22 Rx subcutaneous syringe (Lovenox) prenat.vits,lena,ojp-dxps-svfbb 1 tab PO DAILY 04/26/22 05/13/22 History zinc acetate 50 mg (zinc) capsule 50 mg PO DAILY 04/26/22 05/13/22 History (Galzin) Allergies Allergy/AdvReac Type Severity Reaction Status Date / Time No Known Drug Allergies Allergy Verified 05/06/22 10:04 Exam Narrative Exam Narrative: HEENT: No thyromegaly, no anterior cervical or supraclavicular lymphadenopathy. Lungs:Clear to auscultation bilaterally, no wheezes. Cardiovascular: Regular rate and rhythm, no murmurs, rubs, or gallops. Abdomen: Well-healed Pfannenstiel scars. No hepatosplenomegaly. No masses palpable. External genitalia: Normal Vagina: Normal Cervix: Normal Bimanual exam: 8 Week size anteverted uterus. Mobile. Extremities: No edema Assessment & Plan Assessment & Plan narrative: Assessment: 42-year-old 5 para 1 with a missed at 6 weeks gestation Plan: Suction D&C The risks, benefits, and alternatives to the procedure were explained to the patient. The risks including bleeding, infection, and uterine perforation. She understands these risks and agrees to proceed. A full par Q was held and consent form was signed. COVID-19 COVID-19 status: Negative Result date/Date tested (Pos, Neg/Pending): 05/18/22 Time Spent With Patient Time with patient: less than 30 minutes Critical Care time: I spent a total of [] minutes of critical care time on this patient's care today; this time is exclusive of procedural time.
--- NOTE | 2022-05-19 10:21 | PM.PREOP ---
Pre-operative Note COVID-19 COVID-19 status: Negative Result date/Date tested (Pos, Neg/Pending): 05/18/22 Criteria for continued procedure: Non-surgical alternatives not available or appropriate per current SOC Interval Note History & Physical reviewed/Exam performed by Physician: Yes Changes to H&P: No H&P completed within 30 days and has changed as indicated here:: 05/19/22
[2022-05-19] MEDS: LACTATED RINGERS 1,000 ML 100 ML IV (10:38)
--- NOTE | 2022-05-19 12:05 | SUR.OPER ---
Lithotomy on padded OR bed, head on pillow, arms secured on padded arm boards at <90 degrees abduction. Legs secured in padded yellow fins stirrups.
--- NOTE | 2022-05-19 12:50 | PM.GYNOP.1 ---
Operative Date/Time/Diagnoses Date of procedure: 05/19/22 Time of procedure: 12:50 Pre-op diagnosis: Missed at 6 weeks Post-op diagnosis: same Procedure & Clinicians Procedure: Procedures Operation Date: 05/19/22 09:45 Actual Procedure Side Surgeon p Suction D&C Not Applicable Eri Aquino MD Indications: Missed at 6 weeks gestatiion Surgeon: Eri Aqiuno Anesthesia Type: General (LMA) Operative Notes Findings: 8 week size anteverted uterus Large amount POC Closure Type: not applicable Specimen(s): products of conception Estimated blood loss (mL): 100 Blood products transfused: none Procedure in detail: After informed consent was obtained, the patient was taken to the operating room where she was placed in the dorsal supine position. After adequate LMA general anesthesia was achieved, she was placed in the dorsal lithotomy position, and prepped and draped in the usual sterile fashion. A time-out was performed. A bivalve speculum was placed into the vagina and the anterior lip of the cervix was grasped with a single-tooth tenaculum. The cervical os was sequentially dilated until the # 8 Hegar dilator could pass easily into the endometrial cavity. The single-tooth tenaculum pulled through the anterior lip of the cervix. It was regrasped. The # 7 curved plastic curette passed easily into the endometrial cavity. Several passes with suction revealed a large amount of tissue. The suction curette was removed. Gentle sharp curettage was performed yielding mostly blood. Two more passes with suction revealed blood only. The instruments were removed from the uterus. The single-tooth tenaculum was removed from the anterior lip of the cervix. There was bleeding coming from the tear in the cervix. A [id number] suture with 2 0 chromic was placed for hemostasis. The bivalve speculum was removed from the vagina. Sponge, lap, and instrument counts were correct x2. The patient tolerated the procedure well, and was taken to PACU in stable condition. Complications: none Post-operative Condition: stable Disposition: PACU Plan for aftercare: Home after recovery
[2022-05-19] MEDS: RHO(D) IMMUNE GLOBULIN 1,500 UNIT SYRINGE 1500 UNIT IM (13:43)
--- NOTE | 2022-05-19 14:08 | SUR.PHASEII ---
pt discharged with and pt states she is reaady to go home. Pt having minimal bleeding and denies pain.
== END 2022-05-19 14:14 | disposition home or self-care (01) ==
PROVIDERS: Referring Provider Obstetrics & Gynecology; Visit Provider Obstetrics & Gynecology
PROC: (CPT 58120; principal; 2022-05-19 09:45)
DX: O02.1 Missed abortion (principal); Z3A.01 Less than 8 weeks gestation of pregnancy
CPT/HCPCS: 59820; J1100; J1885; J2250; J2405; J2704; J2790; J3010